=== PATIENT | female | born 1985 | race Caucasian/White ===

== ENCOUNTER 2017-07-21 03:25 | Emergency (ER) | payer OTHER, SELFPAY ==
[~2017-07-21] VITALS: Ht 162.6 cm; Wt 59.0 kg
--- NOTE | 2017-07-21 03:46 | NUR ---
eloped Dr Pickering went to to pain block on affected tooth , patient refused , Dr Pickering explained that block would help with pain , patient refused and walked out
--- NOTE | 2017-07-21 03:58 | ER.PDOC ---
General Chief Complaint: Toothache Stated Complaint: TOOTHACHE TRAVEL OUT OF US: No Time seen by MD: 03:40 Source: patient Exam Limitations: no limitations History of Present Illness Initial Comments pt has fractured tooth that is painful Timing/Duration: 1 week, getting worse Severity: moderate Allergies: Coded Allergies: NSAIDS (Non-Steroidal Anti-Inflamma (Verified Allergy, Unknown, Anaphylaxis Shock, 07/21/17) Penicillins (Verified Allergy, Unknown, Anaphylaxis Shock, 07/21/17) acetaminophen (Verified Allergy, Unknown, 07/21/17) dextromethorphan (Verified Allergy, Unknown, 07/21/17) pseudoephedrine (Verified Allergy, Unknown, 07/21/17) Past Medical History Medical History: no pertinent history Surgical History: cholecystectomy, , hysterectomy Social History Smoking: less than 1 pack/day Alcohol Use: none Drug Use: none Review of Systems Constitutional: no symptoms reported EENTM: mouth pain (fractured right lower ) Respiratory: no symptoms reported Cardiovascular: no symptoms reported Physical Exam General Appearance: Mild Distress EENT: pharynx nml, tenderness (fractured #28) Neck: Non-Tender, Full Range of Motion, Supple Progress Progress pt was offered an iinferior alveolar nerve block, pt declined saying she was deathly afraid of needles and did not "want any needles in my mouth" Departure Time of Disposition: 03:58 Disposition: 07 AGAINST MEDICAL ADVICE Impression: Primary Impression: Fractured tooth Qualified Codes: S02.5XXA - Fracture of tooth (traumatic), initial encounter for closed fracture Condition: Eloped Referrals: PCP,UNKNOWN (PCP) PRIMARY CARE PROVIDER GARTH BOONE MD Jul 21, 2017 03:58
== END 2017-07-21 03:46 | disposition left against medical advice (07) ==
LOC: ER 03:25
DX: S02.5XXA Fracture of tooth (traumatic), initial encounter for closed fracture (principal); F17.200 Nicotine dependence, unspecified, uncomplicated; Z88.0 Allergy status to penicillin; Z88.8 Allergy status to other drugs, medicaments and biological substances; X58.XXXA Exposure to other specified factors, initial encounter; Y93.89 Activity, other specified; Y92.89 Other specified places as the place of occurrence of the external cause; Y99.8 Other external cause status
CPT/HCPCS: 99281